=== PATIENT | female | born 1960 | race Caucasian/White ===

== ENCOUNTER 2016-06-12 08:14 | Observation (INO) | payer MEDICAID ==
[~2016-06-12] VITALS: Ht 165.1 cm; Wt 86.2 kg
[2016-06-12 09:04] LABS: Basophils # (auto) 0 uL; Basophils % (auto) 0.2 % (0.0-2.0); DEFINITIVE VIEW TRANSMISSION; Eosinophils # (auto) 0.1 uL; Eosinophils % (auto) 0.7 % (0.0-7.0); Hematocrit 43.1 % (36.0-46.0); Hemoglobin 13.8 g/dL (12.2-16.2); Lymphocytes # (auto) 2.9 uL; Lymphocytes % (auto) 30.1 % (10.0-50.0); Mean Corpuscular Hemoglobin 26.3 pg (28.0-32.0); Mean Corpuscular Volume 82.3 fL (80.0-100.0); Mean Platelet Volume 7.9 fL (7.4-10.4); Monocytes # (auto) 0.6 uL; Monocytes % (auto) 6.5 % (0.0-12.0); Neutrophils % (auto) 62.5 % (37.0-80.0); Platelet Count (auto) 373 10^3/uL (140-450); Red Cell Distribution Width 16.3 % (11.6-16.0); White Blood Cell 9.7 10^3/uL (4.4-10.8)
[2016-06-12 09:23] LABS: Albumin 4.3 g/dL (3.4-5.0); Alkaline Phosphatase 90 U/L (45-117); Anion Gap 13 (5-15); Aspartate Aminotransferase 18 U/L (15-37); BUN/Creatinine Ratio 11.9; Bilirubin, Total 0.5 mg/dL (0.2-1.0); Blood Urea Nitrogen 10 mg/dL (7-18); Calcium 9.5 mg/dL (8.5-10.1); Carbon Dioxide 24 mmol/L (21-32); Chloride 108 mmol/L (98-107); GFR African American 91 mL/min; GFR Non-African American 75 mL/min; Glucose 105 mg/dL (74-106); Potassium 3.8 mmol/L (3.5-5.1); Sodium 145 mmol/L (136-145); Total Protein 8.4 g/dL (6.4-8.2)
[2016-06-12] MEDS ORDERED: DONNATAL 5ml ORAL Elix (BELLADONNA ALK-PHENOBARB) PO ONE (10:30)
[2016-06-12] MEDS ORDERED: LIDOCAINE VISCOUS 2% 15ML UD PO ONE (10:30)
[2016-06-12] MEDS ORDERED: ONDANSETRON ODT 4 MG TAB PO ONE (10:30)
[2016-06-12] MEDS ORDERED: ALUM & MAG HYDROX-SIMETH LIQ(MAALOX) 30 ML PO ONE (10:30)
[2016-06-12 11:54] LABS: INR 1.15 (0.9-1.15); Partial Thromboplastin Time 27.7 sec (22.64-33.71); Prothrombin Time 11.8 sec (9.37-12.3)
[2016-06-12] MEDS ORDERED: ONDANSETRON HCL 4 MG/2 ML VIAL IV ONE (12:45)
[2016-06-12] MEDS ORDERED: SODIUM CHLORIDE 0.9% 1,000 ML IV ONE (12:45)
[2016-06-12] MEDS ORDERED: MORPHINE SULFATE 4 MG/ML SYRG IV ONE (14:00)
[2016-06-12 14:22] LABS: Amylase 26 U/L (25-115)
[2016-06-12 15:03] LABS: Urine Bilirubin Negative (Negative); Urine Blood TRACE /uL (Negative); Urine Color Yellow (Yellow); Urine Glucose Normal (Normal); Urine Nitrite Negative (Negative); Urine RBC 3 /hpf (0 - 4); Urine Squamous Epithelial Cell FEW /hpf (<5); Urine Urobilinogen Normal (Negative)
[2016-06-12 15:05] LABS: Urine Ketone 1+ (Negative)
[2016-06-12 15:43] VITALS: BP 138/38
== END 2016-06-12 15:45 | disposition home or self-care (01) | DRG 251 ==
LOC: ER 08:14 → OVERFLOW 10:27 → ER 15:45
PROVIDERS: ADMIT Physician Assistant Medical; ATTEND Physician Assistant Medical
DX: R10.84 Generalized abdominal pain (principal); F32.9 Major depressive disorder, single episode, unspecified; E03.9 Hypothyroidism, unspecified; K21.9 Gastro-esophageal reflux disease without esophagitis; R11.0 Nausea; R19.7 Diarrhea, unspecified; E78.00 Pure hypercholesterolemia, unspecified; F41.9 Anxiety disorder, unspecified; Z85.51 Personal history of malignant neoplasm of bladder
CPT/HCPCS: 36415; 71020; 74176; 80053; 81001; 82150; 83690; 84484; 85025; 85610; 85730; 93005; 94761; 96361; 96374; 96375; 99285; G0378; J2270; J2405; J7030; Q0162

== ENCOUNTER 2016-06-13 12:13 | Inpatient (IN) | payer MEDICAID ==
[~2016-06-13] VITALS: Ht 162.6 cm; Wt 83.0 kg
[2016-06-13 13:02] LABS: DEFINITIVE VIEW TRANSMISSION; Eosinophils # (auto) 0 uL; Hemoglobin 12.8 g/dL (12.2-16.2); Monocytes # (auto) 0.7 uL; Neutrophils # (auto) 7.2 uL; White Blood Cell 11.4 10^3/uL (4.4-10.8)
[2016-06-13 13:05] LABS: Basophils # (auto) 0.1 uL; Basophils % (auto) 0.6 % (0.0-2.0); Eosinophils % (auto) 0.1 % (0.0-7.0); Lymphocytes # (auto) 3.4 uL; Lymphocytes % (auto) 30.1 % (10.0-50.0); Mean Corpuscular Hemoglobin 26.5 pg (28.0-32.0); Mean Corpuscular Volume 82.6 fL (80.0-100.0); Mean Platelet Volume 7.9 fL (7.4-10.4); Neutrophils % (auto) 63.2 % (37.0-80.0); Platelet Count (auto) 395 10^3/uL (140-450); Red Cell Distribution Width 15.9 % (11.6-16.0)
[2016-06-13 13:25] LABS: Albumin 4.1 g/dL (3.4-5.0); Alkaline Phosphatase 90 U/L (45-117); Anion Gap 12 (5-15); Aspartate Aminotransferase 18 U/L (15-37); BUN/Creatinine Ratio 14.3; Bilirubin, Total 0.5 mg/dL (0.2-1.0); Blood Urea Nitrogen 11 mg/dL (7-18); Calcium 9.2 mg/dL (8.5-10.1); Carbon Dioxide 23 mmol/L (21-32); Chloride 110 mmol/L (98-107); GFR African American 100 mL/min; GFR Non-African American 83 mL/min; Glucose 100 mg/dL (74-106); Potassium 3.7 mmol/L (3.5-5.1); Sodium 145 mmol/L (136-145)
[2016-06-13] MEDS ORDERED: SODIUM CHLORIDE 0.9% 1,000 ML IVB ONE (18:48)
[2016-06-13] MEDS ORDERED: ONDANSETRON HCL 4 MG/2 ML VIAL IV ONE (19:00)
[2016-06-13] MEDS ORDERED: KETOROLAC TROMETH 30 MG/ML 1ML VIAL IV ONE (19:00)
[2016-06-13 19:38] LABS: INR 1.15 (0.9-1.15); Partial Thromboplastin Time 27.1 sec (22.64-33.71); Prothrombin Time 11.8 sec (9.37-12.3)
[2016-06-13 21:41] LABS: Urine Bilirubin Negative (Negative); Urine Ca Oxalate Crystal FEW (None Seen); Urine Color Yellow (Yellow); Urine Glucose Normal (Normal); Urine Hyaline Cast FEW /lpf (0 - 2); Urine Mucus FEW (None Seen); Urine Nitrite Negative (Negative); Urine RBC 11 /hpf (0 - 4); Urine Squamous Epithelial Cell FEW /hpf (<5); Urine Urobilinogen Normal (Negative)
[2016-06-13 21:43] LABS: Urine Blood 1+ /uL (Negative); Urine Ketone 1+ (Negative)
[2016-06-13] MEDS ORDERED: MEPERIDINE HCL (25 MG/ML) 1ML VIAL IV ONE (22:00)
[2016-06-13] MEDS ORDERED: PROMETHAZINE HCL 25 MG/ML 1ML IV ONE (22:00)
[2016-06-13] MEDS ORDERED: MEPERIDINE HCL (25 MG/ML) 1ML VIAL IV PRN (22:45)
[2016-06-13] MEDS: SODIUM CHLOR 0.9% PF (SALINE LOCK) 10ML VIAL IV SCH (22:48)
[2016-06-13 23:10] VITALS: BP 139/77
[2016-06-14] MEDS ORDERED: GABA300C8 PO (00:19)
[2016-06-14] MEDS ORDERED: DIP25C PO (00:19)
[2016-06-14] MEDS ORDERED: ALPR0.254 PO (00:19)
[2016-06-14] MEDS ORDERED: OME20T PO (00:19)
[2016-06-14] MEDS ORDERED: VENL75TA PO (00:19)
[2016-06-14] MEDS ORDERED: ATOR10TA PO (00:19)
[2016-06-14] MEDS ORDERED: AMOX-263 PO (00:19)
[2016-06-14] MEDS ORDERED: LEV100T PO (00:19)
[2016-06-14] MEDS ORDERED: OXYB5TAB61 PO (00:19)
[2016-06-14] MEDS ORDERED: IBU800T PO (00:19)
[2016-06-14 05:00] VITALS: BP 121/82
[2016-06-14] MEDS: SODIUM CHLOR 0.9% PF (SALINE LOCK) 10ML VIAL IV SCH (06:19)
[2016-06-14] MEDS: PROMETHAZINE HCL 25 MG/ML 1ML IV PRN ×2 (07:46→12:31)
[2016-06-14 09:00] VITALS: BP 104/70
[2016-06-14] MEDS ORDERED: DIC10C PO (11:14)
[2016-06-14] MEDS ORDERED: ONDA4TAB8 SL (11:14)
== END 2016-06-14 14:00 | disposition home health service (06) | DRG 249 ==
LOC: ER 12:13 → OVERFLOW 12:14 → WEST WING 23:09
PROVIDERS: ADMIT Internal Medicine; ATTEND Internal Medicine
DX: K52.9 Noninfective gastroenteritis and colitis, unspecified (principal); G62.9 Polyneuropathy, unspecified; F32.9 Major depressive disorder, single episode, unspecified; E03.9 Hypothyroidism, unspecified; K21.9 Gastro-esophageal reflux disease without esophagitis; K57.30 Diverticulosis of large intestine without perforation or abscess without bleeding; R32 Unspecified urinary incontinence; F12.90 Cannabis use, unspecified, uncomplicated; E78.5 Hyperlipidemia, unspecified; F41.9 Anxiety disorder, unspecified; Z82.49 Family history of ischemic heart disease and other diseases of the circulatory system; Z98.890 Other specified postprocedural states; Z90.49 Acquired absence of other specified parts of digestive tract; Z85.51 Personal history of malignant neoplasm of bladder; Z88.1 Allergy status to other antibiotic agents; Z88.2 Allergy status to sulfonamides; Z87.891 Personal history of nicotine dependence; Z83.3 Family history of diabetes mellitus
CPT/HCPCS: 36415; 80053; 81001; 83735; 84484; 85025; 85610; 85730; 93005; 94761; 96361; 96374; 96375; J1885; J2405

== ENCOUNTER 2022-06-04 20:50 | Emergency (ER) | payer OTHER, BC ==
[~2022-06-04] VITALS: Ht 165.1 cm; Wt 90.0 kg
[~2022-06-04 20:50] MED LIST: ALPR0.254 PO; AMOX-263 PO; ATOR10TA PO; DICY10CA PO; DIP25C PO; GABA300C10 PO; IBUP800T26 PO; LEV100T PO; OME20T PO; ONDA-101 SL; OXYB5TAB61 PO; VENL1TAB99 PO
[2022-06-04 21:11] VITALS: BP 152/89
== END 2022-06-04 22:24 | disposition left against medical advice (07) ==
LOC: ER 20:50
DX: M79.661 Pain in right lower leg (principal); Z53.21 Procedure and treatment not carried out due to patient leaving prior to being seen by health care provider

== ENCOUNTER 2022-09-22 21:15 | Inpatient (IN) | payer BC, OTHER ==
[~2022-09-22] VITALS: Ht 165.1 cm; Wt 88.6 kg
[~2022-09-22 21:15] MED LIST changes: -DIP25C PO; +DIPH25CA51 PO; +GABA-1250 PO; -GABA300C10 PO; +IBUP-1455 PO; -IBUP800T26 PO; +OXYB5TAB10 PO; -OXYB5TAB61 PO
[2022-09-22 21:42] LABS: Basophils # (auto) 0.1 10 ^3/uL (0-0.2); Basophils % (auto) 1.2 % (0.0-2.0); Eosinophils # (auto) 0.1 10 ^3/uL (0-0.8); Eosinophils % (auto) 1.4 % (0.0-7.0); Hematocrit 40.6 % (36.0-46.0); Hemoglobin 13.3 g/dL (12.2-16.2); Lymphocytes # (auto) 3.5 10 ^3/uL (0.4-5.4); Lymphocytes % (auto) 44.1 % (10.0-50.0); Mean Corpuscular Hemoglobin 27.7 pg (28.0-32.0); Mean Corpuscular Hgb Conc. 32.7 g/dL (32.0-36.0); Mean Corpuscular Volume 84.6 fL (80.0-100.0); Monocytes # (auto) 0.6 10 ^3/uL (0-1.3); Monocytes % (auto) 7.4 % (0.0-12.0); Neutrophils # (auto) 3.6 10 ^3/uL (1.6-8.6); Neutrophils % (auto) 45.9 % (37.0-80.0); Red Blood Cells 4.79 10^6/uL (4.0-5.20); Red Cell Distribution Width 15.7 % (11.8-14.3); White Blood Cell 7.9 10^3/uL (4.4-10.8)
[2022-09-22 21:54] LABS: INR 1.12 (0.9-1.15); Partial Thromboplastin Time 26.8 SEC (24.5-34.5)
[2022-09-22 21:57] LABS: Albumin 4.3 g/dL (3.4-5.0); Calcium 9.3 mg/dL (8.5-10.1); Magnesium 2.5 mg/dL (1.6-2.6); Potassium 3.5 mmol/L (3.5-5.1)
[2022-09-22 22:00] LABS: BUN/Creatinine Ratio 7.4 (10.0-20.0); Bilirubin, Total 0.4 mg/dL (0.2-1.0)
[2022-09-23] MEDS ORDERED: MORPHINE SULFATE INJ 2 MG/ml SYRG IV PRN (06:30)
[2022-09-23] MEDS ORDERED: TEMAZEPAM 15 MG CAP PO PRN (06:30)
[2022-09-23] MEDS: LEVOTHYROXINE SODIUM 100 MCG TAB PO SCH (07:49)
[2022-09-23] MEDS: ONDANSETRON HCL 4 MG/2 ML VIAL IV PRN ×2 (08:07→17:31)
[2022-09-23] MEDS: ASPirin 81 mg TAB PO SCH (09:52)
[2022-09-23] MEDS: LISINOPRIL 10 MG TAB PO SCH (09:52)
[2022-09-23] MEDS: VENLAFAXINE HCL 37.5MG TABLET PO SCH ×2 (09:52→22:00)
[2022-09-23] MEDS: ENOXAPARIN SOD 40 MG/0.4 ML SYRINGE SC SCH (09:53)
[2022-09-23] MEDS ORDERED: PANTOPRAZOLE 40 MG TAB PO SCH (10:00)
[2022-09-23] MEDS: NITROGLYCERIN 0.4 MG SL TAB SL PRN (17:13)
[2022-09-23] MEDS: ATORVASTATIN 20 MG TAB PO SCH (22:50)
[2022-09-24] VITALS (7 sets, daily range): BP systolic 95–167; BP diastolic 48–87
[2022-09-24] MEDS: ACETAMINOPHEN 325 MG TAB PO PRN ×2 (01:27→16:07)
[2022-09-24] MEDS: ONDANSETRON HCL 4 MG/2 ML VIAL IV PRN ×3 (01:38→16:07)
[2022-09-24] MEDS ORDERED: OME20GT GT (03:04)
[2022-09-24] MEDS ORDERED: MAGN1CAP2 PO (03:04)
[2022-09-24] MEDS ORDERED: CETI10CA PO (03:04)
[2022-09-24] MEDS ORDERED: FENO67CA13 PO (03:04)
[2022-09-24] MEDS ORDERED: ZOLP10TA PO (03:04)
[2022-09-24] MEDS ORDERED: LISI20TA56 PO (03:04)
[2022-09-24] MEDS: LEVOTHYROXINE SODIUM 100 MCG TAB PO SCH (06:28)
[2022-09-24 06:41] LABS: BUN/Creatinine Ratio 8.3 (10.0-20.0); Calcium 9.2 mg/dL (8.5-10.1); Potassium 3.8 mmol/L (3.5-5.1)
[2022-09-24] MEDS: ASPirin 81 mg TAB PO SCH ×2 (10:00→10:30)
[2022-09-24] MEDS: LISINOPRIL 10 MG TAB PO SCH ×2 (10:00→10:29)
[2022-09-24] MEDS: ENOXAPARIN SOD 40 MG/0.4 ML SYRINGE SC SCH ×2 (10:30→10:34)
[2022-09-24] MEDS: VENLAFAXINE HCL 37.5MG TABLET PO SCH ×2 (10:54→22:00)
[2022-09-24] MEDS ORDERED: MORPHINE SULFATE INJ 2 MG/ml SYRG IV PRN (12:00)
[2022-09-24] MEDS: KETOROLAC TROMETH 30 MG/ML 1ML VIAL IV PRN ×2 (13:29→22:31)
[2022-09-24] MEDS: ATORVASTATIN 20 MG TAB PO SCH (22:00)
[2022-09-25 05:00] VITALS: BP 166/90
[2022-09-25] MEDS: ACETAMINOPHEN 325 MG TAB PO PRN ×2 (06:28→14:59)
[2022-09-25] MEDS: LEVOTHYROXINE SODIUM 100 MCG TAB PO SCH (06:28)
[2022-09-25] MEDS ORDERED: hydrALAZINE HCL 20 MG/ML VL IV PRN (07:00)
[2022-09-25] MEDS ORDERED: ADENOSINE 74 MG in GIVE UN-DILUTED 0 ML IV ONE (08:30)
[2022-09-25] MEDS: ONDANSETRON HCL 4 MG/2 ML VIAL IV PRN (08:30)
[2022-09-25] MEDS: VENLAFAXINE HCL 37.5MG TABLET PO SCH ×2 (08:35→21:02)
[2022-09-25] MEDS: ASPirin 81 mg TAB PO SCH (08:35)
[2022-09-25] MEDS: LISINOPRIL 10 MG TAB PO SCH (08:36)
[2022-09-25] MEDS: ENOXAPARIN SOD 40 MG/0.4 ML SYRINGE SC SCH (08:38)
[2022-09-25 09:00] VITALS: BP 152/103
[2022-09-25] MEDS: NITROGLYCERIN 0.4 MG SL TAB SL PRN ×2 (09:06→09:11)
[2022-09-25] MEDS: PROMETHAZINE HCL 25 MG/ML 1ML IM PRN ×2 (12:20→21:05)
[2022-09-25 13:00] VITALS: BP 130/76
[2022-09-25] MEDS: SUCRALFATE 1 GM/10 ML ORAL SUSP PO PRN ×2 (15:06→22:06)
[2022-09-25 17:00] VITALS: BP 161/92
[2022-09-25] MEDS: ATORVASTATIN 20 MG TAB PO SCH (21:02)
[2022-09-25 22:00] VITALS: BP 163/98
[2022-09-26 05:00] VITALS: BP 138/85
[2022-09-26] MEDS: LEVOTHYROXINE SODIUM 100 MCG TAB PO SCH (05:52)
[2022-09-26] MEDS: SUCRALFATE 1 GM/10 ML ORAL SUSP PO PRN (05:54)
[2022-09-26 09:40] VITALS: BP 151/77
[2022-09-26] MEDS ORDERED: PANTOPRAZOLE 40 MG/10 ML VIAL INJ IV SCH (10:00)
[2022-09-26] MEDS ORDERED: POLYETHYLENE GLYCOL 17 GM PWDR PO SCH (10:00)
[2022-09-26] MEDS: LISINOPRIL 10 MG TAB PO SCH (10:13)
[2022-09-26] MEDS: VENLAFAXINE HCL 37.5MG TABLET PO SCH (10:13)
[2022-09-26] MEDS: ASPirin 81 mg TAB PO SCH (10:13)
[2022-09-26] MEDS: ENOXAPARIN SOD 40 MG/0.4 ML SYRINGE SC SCH (10:14)
[2022-09-26 12:37] VITALS: BP 169/79
[2022-09-26] MEDS ORDERED: SUCR1TAB22 PO ×3 (13:24→13:52)
[2022-09-26] MEDS ORDERED: PANT40TA2 PO ×3 (13:25→13:52)
[2022-09-26] MEDS ORDERED: ZOFR4T PO ×3 (13:25→13:52)
[2022-09-26 14:55] VITALS: BP 169/79
== END 2022-09-26 15:43 | disposition home or self-care (01) | DRG 311 ==
LOC: ER 21:15 → TELE 09-23 06:21 → TELE-WESTW 09-23 23:24
PROVIDERS: ADMIT Nurse Practitioner; ATTEND Internal Medicine
PROC: 5A09357 Assistance with Respiratory Ventilation, Less than 24 Consecutive Hours, Continuous Positive Airway Pressure (ICD-10-PCS; principal; 2022-09-23)
DX: I24.9 Acute ischemic heart disease, unspecified (principal); I10 Essential (primary) hypertension; F41.9 Anxiety disorder, unspecified; E11.9 Type 2 diabetes mellitus without complications; K21.9 Gastro-esophageal reflux disease without esophagitis; E78.5 Hyperlipidemia, unspecified; I34.0 Nonrheumatic mitral (valve) insufficiency; E06.3 Autoimmune thyroiditis; Z85.51 Personal history of malignant neoplasm of bladder; Z88.2 Allergy status to sulfonamides; Z79.899 Other long term (current) drug therapy; Z79.1 Long term (current) use of non-steroidal anti-inflammatories (NSAID); Z87.891 Personal history of nicotine dependence; Z83.3 Family history of diabetes mellitus; Z82.49 Family history of ischemic heart disease and other diseases of the circulatory system
CPT/HCPCS: 36415; 71045; 78452; 80048; 80053; 83735; 83880; 84484; 85025; 85610; 85730; 93005; 93017; 93306; 94660; C9113; G0378; J0153; J1885; J2405

== ENCOUNTER 2022-09-27 20:07 | Emergency (ER) | payer BC, OTHER ==
[~2022-09-27] VITALS: Ht 165.1 cm; Wt 90.9 kg
[~2022-09-27 20:07] MED LIST changes: +CETI10CA PO; +FENO67CA13 PO; +LISI20TA56 PO; +MAGN1CAP2 PO; +OME20GT GT; +PANT40TA2 PO; +SUCR1TAB22 PO; +ZOFR4T PO; +ZOLP10TA PO
[2022-09-27 20:26] VITALS: BP 122/82
== END 2022-09-27 23:01 | disposition left against medical advice (07) ==
LOC: ER 20:07
DX: R22.31 Localized swelling, mass and lump, right upper limb (principal); Z53.21 Procedure and treatment not carried out due to patient leaving prior to being seen by health care provider